=== PATIENT | male | born 1990 | race Caucasian/White ===

== ENCOUNTER 2017-03-04 00:41 | Emergency (ER) | payer MEDICAID, OTHER ==
[2017-03-04 00:56] VITALS: BP 166/115
--- NOTE | 2017-03-04 01:08 | ED Physician Documentation ---
PD HPI UPPER EXT INJURY - Stated complaint Stated Complaint: RT HAND LACERATION - Chief complaint Chief Complaint: Laceration - History obtained from History obtained from: Patient - History of Present Illness Location: Right, Hand Type of injury: Blunt / blow Where injury occurred: Home Timing - details: Abrupt onset Associated symptoms: No: Weakness, Numbness - Additonal information Additional information: patient punched glass object which shattered, causing multiple abrasions and lacerations to his right hand. patient is right-hand dominant. Review of Systems Skin: reports: Abrasion (s), Laceration (s) Neurologic: denies: Focal weakness, Numbness PD PAST MEDICAL HISTORY - Past Medical History Cardiovascular: Hypertension Respiratory: None Neuro: None Endocrine/Autoimmune: None GI: None : None Psych: Anxiety Musculoskeletal: None Derm: None - Past Surgical History Past Surgical History: Yes HEENT: Other - Present Medications Home Medications: Ambulatory Orders Medication Instructions Recorded Confirmed Cyclobenzaprine [Flexeril] 10 mg PO Q8H PRN #20 tablet 04/13/14 Ibuprofen [Motrin] 400 mg PO Q6H PRN #30 tablet 04/13/14 Oxycodone HCl/Acetaminophen 1 - 2 each PO Q6H PRN #15 tablet 04/13/14 [Percocet 5-325 mg Tablet] - Allergies Allergies/Adverse Reactions: Allergies Allergy/AdvReac Type Severity Reaction Status Date / Time No Known Drug Allergies Allergy Verified 03/04/17 00:56 - Social History Does the pt smoke?: No Smoking Status: Never smoker Does the pt drink ETOH?: No Does the pt have substance abuse?: No - Immunizations Immunizations are current?: Yes - POLST Patient has POLST: No PD ED PE NORMAL - Vitals Vital signs reviewed: Yes - General General: Alert and oriented X 3, No acute distress, Well developed/nourished - Extremities Extremities: No tenderness to palpate, Normal ROM s pain - Neuro Neuro: No motor deficit, No sensory deficit, Other (FROM right fingers, including flexion and extension and isolation of PIP and DIP joints. LTS intact) PD ED PE EXPANDED - Extremities Extremities: Other (right-hand corner there are multiple superficial lacerations and abrasions to the extensor surfaces of the third fourth and fifth digits.there is a deep, stellate, beveled laceration in the third webspace.there are linear superficial lacerations in the fourth webspace) Results - Vitals Vitals: Vital Signs - 24 hr 03/04/17 00:52 Temperature 37.2 C Heart Rate 51 L Respiratory 20 Rate Blood Pressure 166/115 H O2 Saturation 96 Oxygen O2 Source Room air Procedures - Laceration (location) Hand right Length in cm: 1.5 Wound type: Irregular, Into subcut fat, Clean Neurovascular status: Sensory intact, Motor intact, Vascular intact Tendon involvement: Tendon intact Anesthesia: Lidocaine 1% Wound Preparation: Chlorhexadine Skin layer closure: Nylon, Interrupted, Running, Other (a single horizontal mattress suture was used to pull the proximal-most portion of the lacsration together, but due to tissue loss, the wound edges could not be completely and perfectly opposed) Other: Patient tolerated well, No complications, Neurovascular intact, Dressing applied Complexity: Simple PD MEDICAL DECISION MAKING - ED course Complexity details: considered differential, d/w patient ED course: no FB on careful inspection of all wounds except for a single, punctate FB removed from fourth webspace. I d/w patient that part of the sutured wound had tissue missing and thus the wound edges could not be completely approximated. Imexplained that this part of the wound would thus take longer to heal than the rest of the wound. Departure - Departure Disposition: 01 Home, Self Care Clinical Impression: Laceration Condition: Good Instructions: ED Laceration Ext Sutr Stap Tape Follow-Up: [facility] [Provider Group] [facility] [Provider Group] Comments: Follow up in 7-10 days for removal of the stitches Discharge Date/Time: 03/04/17 02:09
[2017-03-04] MEDS ORDERED: LIDOCAINE 1% 50 ML MDV SUBQ STA (01:16)
[2017-03-04] MEDS ORDERED: LIDOCAINE 1% 2 ML VIAL ONE (01:21)
[2017-03-04] MEDS ORDERED: BACITRACIN OINT TOP STA (02:02)
== END 2017-03-04 02:09 | disposition home or self-care (01) ==
LOC: ED 00:41
DX: S61.421A Laceration with foreign body of right hand, initial encounter (principal); S61.411A Laceration without foreign body of right hand, initial encounter; S60.511A Abrasion of right hand, initial encounter; S60.412A Abrasion of right middle finger, initial encounter; S60.414A Abrasion of right ring finger, initial encounter; S60.416A Abrasion of right little finger, initial encounter; W25.XXXA Contact with sharp glass, initial encounter; W45.8XXA Other foreign body or object entering through skin, initial encounter; W22.8XXA Striking against or struck by other objects, initial encounter; Y93.89 Activity, other specified; Y92.009 Unspecified place in unspecified non-institutional (private) residence as the place of occurrence of the external cause; I10 Essential (primary) hypertension
CPT/HCPCS: 12001; 99282; 99283

== ENCOUNTER 2017-03-26 14:38 | Emergency (ER) | payer MEDICAID ==
[2017-03-26] MEDS ORDERED: COLCHICINE 0.6 MG TABLET PO STA (15:01)
[2017-03-26] MEDS ORDERED: DEXAMETHASONE 10 MG/ML VIAL PO STA (15:01)
[2017-03-26] MEDS ORDERED: DEXAMETHASONE 10 MG/ML VIAL ONE (15:06)
[2017-03-26] MEDS ORDERED: CHERRY SYRUP 10 ML UDC PO ONE (15:06)
== END 2017-03-26 15:18 | disposition home or self-care (01) ==
DX: M10.9 Gout, unspecified (principal); I10 Essential (primary) hypertension
CPT/HCPCS: 99283; A9270

== ENCOUNTER 2017-05-23 21:21 | Emergency (ER) | payer MEDICAID ==
--- NOTE | 2017-05-23 22:32 | ED Physician Documentation ---
PD HPI SKIN - Stated complaint Stated Complaint: LT ANKLE PX - Chief complaint Chief Complaint: Ext Problem - History obtained from History obtained from: Patient - History of Present Illness Timing - onset: Today Timing - duration: Hours Timing - details: Abrupt onset Location: LLE (dorsolateral foot) Quality / character: Painful, Discolored (red), Swelling Associated symptoms: No: Fever, Myalgias Similar symptoms before: Diagnosis (likely gout) Review of Systems Constitutional: denies: Fever, Chills Skin: denies: Abrasion (s), Laceration (s) Neurologic: denies: Focal weakness, Numbness PD PAST MEDICAL HISTORY - Past Medical History Cardiovascular: Hypertension Respiratory: None Neuro: None Endocrine/Autoimmune: None GI: None : None Psych: Anxiety Musculoskeletal: Gout Derm: None - Past Surgical History Past Surgical History: Yes HEENT: Other - Present Medications Home Medications: Ambulatory Orders Medication Instructions Recorded Confirmed Colchicine 0.6 mg PO BID #10 tablet 05/23/17 Dexamethasone [Decadron] 4 mg PO DAILY #5 tablet 05/23/17 HYDROcod/ACETAM 5/325 [[place] 5/325] 1 tab PO Q6H PRN #20 tablet 05/23/17 - Allergies Allergies/Adverse Reactions: Allergies Allergy/AdvReac Type Severity Reaction Status Date / Time No Known Drug Allergies Allergy Verified 05/23/17 21:26 - Social History Does the pt smoke?: No Smoking Status: Never smoker Does the pt drink ETOH?: No Does the pt have substance abuse?: No - Immunizations Immunizations are current?: Yes - POLST Patient has POLST: No PD ED PE NORMAL - Vitals Vital signs reviewed: Yes - General General: Alert and oriented X 3, Well developed/nourished - Derm Derm: Warm and dry, Other (redness with warmth and very tender dorsolateral foot proximally. similar to prior epiosde and c/w gout. No skin sores. ) Results - Vitals Vitals: Vital Signs - 24 hr 05/23/17 05/23/17 21:26 23:10 Temperature 36.4 C L 37.0 C Heart Rate 84 61 Respiratory 18 97 H Rate Blood Pressure 158/102 H 141/84 H O2 Saturation 97 15 L Oxygen O2 Source Room air PD MEDICAL DECISION MAKING - ED course Complexity details: considered differential (c/w recurrent gout. Has stopped alcohol regular use, non for few weeks. Regular diet. 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 ), d/w patient Departure - Departure Disposition: 01 Home, Self Care Clinical Impression: Foot pain, left Gout attack Qualifiers: Gout site: foot Gout etiology: idiopathic Laterality: left Qualified Code(s): M10.072 - Idiopathic gout, left ankle and foot Condition: Stable Record reviewed to determine appropriate education?: Yes Instructions: ED Arthritis Gout Follow-Up: Riley Scott MD [Primary Care Provider] - Prescriptions: Colchicine 0.6 mg PO BID #10 tablet Dexamethasone [Decadron] 4 mg PO DAILY #5 tablet HYDROcod/ACETAM 5/325 [[place] 5/325] 1 tab PO Q6H PRN #20 tablet PRN Reason: Pain Comments: Keep well-hydrated. Ibuprofen or naproxen twice daily for pain. Add Tylenol or hydrocodone if needed every 6 hours. Colchicine twice daily for the next 3- 5 days. Dexamethasone steroid daily for the next 5 days. Recheck if not improving over the next few days. Discharge Date/Time: 05/23/17 23:26
[2017-05-23] MEDS ORDERED: IBUPROFEN 600 MG TABLET PO STA (22:48)
[2017-05-23] MEDS ORDERED: DEXAMETHASONE 10 MG/ML VIAL PO STA (22:48)
[2017-05-23] MEDS ORDERED: HYDROcod/ACETAM 5/325 MG TABLET PO STA (22:50)
[2017-05-23] MEDS ORDERED: HYDROcod/ACET 5/325 Prepack 6 PO ONE ×2 (22:54→23:17)
[2017-05-23 23:11] VITALS: BP 141/84
[2017-05-23] MEDS ORDERED: HYDROcod/ACETAM 5/325 MG TABLET ONE (23:16)
[2017-05-23] MEDS ORDERED: IBUPROFEN 600 MG TABLET PO ONE (23:17)
[2017-05-23] MEDS ORDERED: DEXAMETHASONE 10 MG/ML VIAL ONE (23:17)
== END 2017-05-23 23:26 | disposition home or self-care (01) ==
LOC: ED 21:21
DX: M10.072 Idiopathic gout, left ankle and foot (principal); M25.572 Pain in left ankle and joints of left foot
CPT/HCPCS: 99283; A9270

== ENCOUNTER 2017-12-03 10:41 | Outpatient (CLI) | payer MEDICAID ==
[2017-12-04 09:11] LABS: HEPATITIS C ANTIBODY NON-REACTIVE (NON-REACTIVE)
[2017-12-04 15:46] LABS: HIV AG/AB 4TH GEN NON-REACTIVE (NON-REACTIVE)
[2017-12-05 12:42] LABS: HSV 2 IGG TYPE SPECIFIC AB <0.90 index
== END 2017-12-03 10:42 | disposition home or self-care (01) ==
LOC: LAB.N 10:41
PROVIDERS: ATTEND Physician Assistant Medical
DX: Z91.89 Other specified personal risk factors, not elsewhere classified (principal)
CPT/HCPCS: 36415; 81599; 86695; 86696; 86803; 87389; 87491; 87591

== ENCOUNTER 2018-03-05 08:00 | Outpatient (CLI) | payer MEDICAID ==
[2018-03-05 19:51] LABS: BILIRUBIN,URINE NEGATIVE (NEGATIVE); GLUCOSE, URINE (UA) NEGATIVE (NEGATIVE); KETONES,URINE (UA) NEGATIVE (NEGATIVE); LEUKOCYTE ESTERASE, URINE NEGATIVE (NEGATIVE); NITRITE,URINE NEGATIVE (NEGATIVE); OCCULT BLOOD,URINE NEGATIVE (NEGATIVE); PH,URINE 6.5 PH (5.0-7.5); PROTEIN,URINE NEGATIVE (NEGATIVE); UROBILINOGEN,URINE 0.2 (NORMAL) E.U./dL (NORMAL)
[2018-03-05 20:12] LABS: BACTERIA,URINE None Seen /HPF (None Seen); CLARITY,URINE CLEAR (CLEAR); RBC,URINE None Seen /HPF (0-5); SQUAMOUS EPITHELIAL CELL,UR NONE SEEN (<= Few)
== END 2018-03-05 08:01 | disposition home or self-care (01) ==
LOC: LAB.R 08:00
PROVIDERS: ATTEND Physician Assistant Medical
DX: R31.9 Hematuria, unspecified (principal); R10.9 Unspecified abdominal pain
CPT/HCPCS: 81001; 87086

== ENCOUNTER 2018-03-20 19:04 | Emergency (ER) | payer MEDICAID ==
[2018-03-20 19:10] VITALS: BP 154/95
--- NOTE | 2018-03-20 19:36 | XRAY Report ---
Procedure Date: 03/20/2018 Accession Number: [id number] / [id number] Procedure: XR - Finger(s) RT CPT Code: FULL RESULT: EXAM: RIGHT FIRST DIGIT RADIOGRAPHY EXAM DATE: 03/20/2018 07:20 PM. CLINICAL HISTORY: Trauma. COMPARISON: None. TECHNIQUE: 3 views. FINDINGS: Bones: No fracture or focal bony lesion. Joints: No evidence of dislocation. Soft Tissues: No unexpected soft tissue findings. IMPRESSION: No evidence of fracture or dislocation. RADIA
[2018-03-20] MEDS ORDERED: TETANUS/DIPHTHERIA/PERTUSSIS 0.5 ML SYRINGE IM ONE (20:34)
[2018-03-20] MEDS ORDERED: cephALEXin 250 MG CAPSULE PO STA (20:34)
--- NOTE | 2018-03-20 20:36 | ED Physician Documentation ---
PD HPI UPPER EXT INJURY - Stated complaint Stated Complaint: R FINGER INJ - Chief complaint Chief Complaint: Wound - History of Present Illness Location: Right, Finger Type of injury: Laceration, Puncture wound Where injury occurred: Work Timing - onset: Today Timing - details: Abrupt onset Recently seen: Not recently seen - Additonal information Additional information: Patient is a 27 year old male with no significant past medical history who is presenting to the emergency department for a puncture wound in his right thumb. Patient shot a nail into his thumb earlier today at work. patient denies any other trauma but is unsure about his tetanus. Review of Systems Ten Systems: 10 systems reviewed and negative PD PAST MEDICAL HISTORY - Past Medical History Past Medical History: No Cardiovascular: Hypertension Respiratory: None Endocrine/Autoimmune: None GI: None : None Psych: Anxiety Musculoskeletal: Gout Derm: None - Past Surgical History Past Surgical History: Yes HEENT: Other - Present Medications Home Medications: Ambulatory Orders Medication Instructions Recorded Confirmed Colchicine 0.6 mg PO BID #10 tablet 05/23/17 Dexamethasone [Decadron] 4 mg PO DAILY #5 tablet 05/23/17 HYDROcod/ACETAM 5/325 [[place] 5/325] 1 tab PO Q6H PRN #20 tablet 05/23/17 Cephalexin [Keflex] 500 mg PO Q6H 7 Days capsule 03/20/18 - Allergies Allergies/Adverse Reactions: Allergies Allergy/AdvReac Type Severity Reaction Status Date / Time No Known Drug Allergies Allergy Verified 05/23/17 21:26 - Social History Does the pt smoke?: No Smoking Status: Never smoker Does the pt drink ETOH?: No Does the pt have substance abuse?: No - Immunizations Immunizations are current?: No - POLST Patient has POLST: No PD ED PE NORMAL - Vitals Vital signs reviewed: Yes - General General: Alert and oriented X 3, No acute distress - HEENT HEENT: Pharynx benign - Cardiac Cardiac: RRR - Respiratory Respiratory: No respiratory distress - Neuro Neuro: Alert and oriented X 3, No motor deficit, No sensory deficit, Normal speech Eye Opening: Spontaneous PD ED PE EXPANDED - Cardiac Cardiac: Cap refill < 2 sec - Extremities Extremities: Right finger(s) (puncture wound of first digit. No active bleeding ) Results - Vitals Vitals: Vital Signs - 24 hr 03/20/18 19:06 Temperature 36.9 C Heart Rate 75 Respiratory 16 Rate Blood Pressure 154/95 H O2 Saturation 98 Oxygen O2 Source Room air - Rads (name of study) right hand Radiology: Final report received (no acute fracture or dislocation) PD MEDICAL DECISION MAKING - ED course Complexity details: reviewed old records, reviewed results, re-evaluated patient , considered differential, d/w patient ED course: Patient was seen and examined at bedside. patient was sent for imaging. When patient returned the results were reviewed. there was no acute fracture or dislocation. patient was treated with tdap and keflex. patient required no further work up and was stable for discharge with outpatient follow up. - Sepsis Event Vital Signs: Vital Signs - 24 hr 03/20/18 19:06 Temperature 36.9 C Heart Rate 75 Respiratory 16 Rate Blood Pressure 154/95 H O2 Saturation 98 Oxygen O2 Source Room air Departure - Departure Disposition: 01 Home, Self Care Clinical Impression: Puncture wound Condition: Good Instructions: ED Wound Puncture General Follow-Up: Antwan Castro PA-C [Primary Care Provider] - Within 1 week Prescriptions: Cephalexin [Keflex] 500 mg PO Q6H 7 Days capsule Comments: there is no acute fracture or dislocation today. You were treated with tetanus and started on antibiotics. you should keep the area clean and dry and monitor for signs of infection. you should follow up with your doctor if you see any signs of infection. you can ice the wound and take motrin or tylenol as needed for pain.
== END 2018-03-20 20:42 | disposition home or self-care (01) ==
LOC: ED 19:04
DX: S61.032A Puncture wound without foreign body of left thumb without damage to nail, initial encounter (principal); W45.0XXA Nail entering through skin, initial encounter; Y99.0 Civilian activity done for income or pay; I10 Essential (primary) hypertension; Z23 Encounter for immunization
CPT/HCPCS: 73140; 90471; 90715; 99283; A9270; 96372

== ENCOUNTER 2022-08-07 12:30 | Emergency (ER) | payer BC, MEDICAID ==
[2022-08-07 12:56] VITALS: BP 175/115
--- NOTE | 2022-08-07 13:36 | XRAY Report ---
PROCEDURE: Hand 3 View RT INDICATIONS: Trauma TECHNIQUE: 3 views of the hand(s) acquired. COMPARISON: None FINDINGS: Bones: Comminuted fracture of the base of the first metacarpal. Fracture lucencies extending to the f irst CMC joint. Deformity of the fifth metacarpal compatible with chronic healed fracture. Soft tissues: No suspicious soft tissue calcifications. IMPRESSION: Comminuted, intra-articular, fracture involving the base of the first metacarpal. Reviewed by: Marita Moreno MD, PhD on 08/07/2022 1:34 PM PST Approved by: Marita Moreno MD, PhD on 08/07/2022 1:34 PM PST Station ID: [id number]
--- NOTE | 2022-08-07 14:55 | ED Physician Documentation ---
PD HPI UPPER EXT INJURY - Stated complaint Stated Complaint: RT HAND SWOLLEN - Chief complaint Chief Complaint: Ext Problem - History obtained from History obtained from: Patient - History of Present Illness Location: Right, Hand (base of thumb/radial hand.) Type of injury: Blunt / blow (he was rearranging boxes in storage shelves and some cast iron cookware fell onto right hand. pain base of thumb area. the farr then fell further to the floor and struck front of aggarwal onto top of foot. Pt able to walk okay. 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 No: Weakness, Numbness Similar symptoms before: Has not had sx before Recently seen: Not recently seen Review of Systems Skin: denies: Abrasion (s), Laceration (s) Neurologic: denies: Focal weakness, Numbness PD PAST MEDICAL HISTORY - Past Medical History Cardiovascular: Hypertension Respiratory: None Endocrine/Autoimmune: None GI: None : None Psych: Anxiety Musculoskeletal: Gout Derm: None - Past Surgical History Past Surgical History: Yes HEENT: Other - Present Medications Home Medications: Ambulatory Orders Medication Instructions Recorded Confirmed Colchicine 0.6 mg PO TID PRN #15 tablet 08/07/22 HYDROcod/ACETAM 5/325 [[place] 5/325] 1 ea PO Q6H PRN #18 tablet 08/07/22 - Allergies Allergies/Adverse Reactions: Allergies Allergy/AdvReac Type Severity Reaction Status Date / Time Penicillins Allergy Unknown Verified 08/07/22 12:54 - Social History Does the pt smoke?: No Smoking Status: Never smoker Does the pt drink ETOH?: No Does the pt have substance abuse?: No - Immunizations Immunizations are current?: No - POLST Patient has POLST: No PD ED PE NORMAL - Vitals Vital signs reviewed: Yes - General General: Alert and oriented X 3, Well developed/nourished, Other (guarding motion of right thumb. able to walk/ambulate without limping. ) - Derm Derm: Normal color, Warm and dry - Extremities Extremities: Other (right base first MC with tenderness and swelling. No ecchymosis. Normal color and cap refill in thumb. Normal sensation to touch. pain with slight movement. Foot and ankle right with normal rom without pain. ) - Neuro Neuro: Alert and oriented X 3, No motor deficit, No sensory deficit, Normal speech Results - Vitals Vitals: Vital Signs - 24 hr 08/07/22 12:52 Temperature 37.2 C Heart Rate 106 H Respiratory 16 Rate Blood Pressure 175/115 H O2 Saturation 98 Oxygen O2 Source Room air - Rads (name of study) right hand Radiology: Prelim report reviewed (base of first mC comminuted articular fracture with some displacement. ), See rad report Procedures - Splint (location) right hand thumb spica Splint applied by: Physician Type of splint: Short arm, Thumb spica (well padded) Other: Patient tolerated well, No complications, Neurovascular intact, Sling provided PD MEDICAL DECISION MAKING - ED course Complexity details: reviewed results, considered differential, d/w patient Departure - Departure Disposition: 01 Home, Self Care Clinical Impression: Hand injury Qualifiers: Encounter type: initial encounter Laterality: right Qualified Code(s): S69.91XA - Unspecified injury of right wrist, hand and finger(s), initial encounter First metacarpal bone fracture Qualifiers: Encounter type: initial encounter Fracture type: closed Metacarpal location: base Fracture morphology: unspecified fracture morphology Fracture alignment: displaced Laterality: right Qualified Code(s): S62.231A - Other displaced fracture of base of first metacarpal bone, right hand, initial encounter for closed fracture Foot contusion Qualifiers: Encounter type: initial encounter Laterality: right Qualified Code(s): S90.31XA - Contusion of right foot, initial encounter Condition: Stable Record reviewed to determine appropriate education?: Yes Instructions: ED Fx Hand Closed Follow-Up: Rupesh Copeland MD [Provider Admit Priv/Credential] - Prescriptions: Colchicine 0.6 mg PO TID PRN #15 tablet PRN Reason: Pain HYDROcod/ACETAM 5/325 [[place] 5/325] 1 ea PO Q6H PRN #18 tablet PRN Reason: Pain Comments: Keep the splint clean and dry. Use the sling to help elevate. Ice and elevate the hand often to reduce swelling. Call the orthopedic office today or tomorrow for an appointment later this week or early next week. The orthopedist will evaluate it at that point and decide with you whether it needs a surgical repair or just casting. You will likely be out of commission about 6 weeks or so because of this fracture. Tylenol ibuprofen as needed for pains. Add hydrocodone every 4-6 hours if needed for worse pain. I did write a prescription for some colchicine should the injury of your foot precipitate a gout flareup. I transmitted prescriptions to [facility] pharmacy. I am prescribing a short course of narcotic pain medication for you. These are potentially dangerous and addictive medications that should be used carefully. These medications may constipate you. Take an [id number] stool softener such as docusate twice daily with plenty of water while taking these medications. If you go 24 hours without a bowel movement, take [id number] MiraLAX, per package instructions. Do not drink or drive while taking these medications. If you received narcotic or sedating medications while in the emergency department do not drive for 24 hours. Store this medication in a safe, secure place and out of reach of children. It is a violation of federal law to give or sell this medication to another person or to use in a manner other than prescribed. The ED will not refill narcotic prescriptions, including prescriptions lost or stolen. You can dispose of unwanted medications at the [facility]'s office or at several pharmacies such as [facility]. Discharge Date/Time: 08/07/22 16:00
[2022-08-07] MEDS ORDERED: ACETAMINOPHEN 325 MG TABLET PO STA (15:16)
[2022-08-07] MEDS ORDERED: IBUPROFEN 600 MG TABLET PO STA (15:16)
== END 2022-08-07 16:00 | disposition home or self-care (01) ==
LOC: ED 12:30
DX: S62.231A Other displaced fracture of base of first metacarpal bone, right hand, initial encounter for closed fracture (principal); S69.91XA Unspecified injury of right wrist, hand and finger(s), initial encounter; S90.31XA Contusion of right foot, initial encounter; W20.8XXA Other cause of strike by thrown, projected or falling object, initial encounter; Y93.89 Activity, other specified; Y92.009 Unspecified place in unspecified non-institutional (private) residence as the place of occurrence of the external cause; I10 Essential (primary) hypertension
CPT/HCPCS: 73130; 99283; A9270

== ENCOUNTER 2022-08-13 08:00 | Outpatient (CLI) | payer BC ==
--- NOTE | 2022-08-13 11:18 | XRAY Report ---
PROCEDURE: Hand 3 View RT INDICATIONS: RIGHT HAND PAIN TECHNIQUE: 3 views of the hand(s) acquired. COMPARISON: 08/07/2022 FINDINGS: Bones: Similar comminuted fracture of the base of the first metacarpal. Prior deformity of the fifth metacarpal. Possible prior deformity of the distal radius. Soft tissues: No suspicious calcifications. IMPRESSION: No significant change in comminuted fracture of the base of the first metacarpal. Reviewed by: Enio Duque MD on 08/13/2022 11:16 AM PST Approved by: Enio Duque MD on 08/13/2022 11:16 AM PST Station ID: [id number]
== END 2022-08-13 23:59 | disposition home or self-care (01) ==
LOC: DI.WOS 08:00
PROVIDERS: ATTEND Orthopaedic Surgery
DX: S62.231A Other displaced fracture of base of first metacarpal bone, right hand, initial encounter for closed fracture (principal)

== ENCOUNTER 2022-08-15 06:26 | Day surgery (SDC) | payer BC ==
[~2022-08-15 06:26] MED LIST: ACETAMINOPHEN 500 MG TABLET PO ONE; CEFAZOLIN 2G/50ML 0.9% NS 2 GM/50 ML BAG IV ONE; CELECOXIB 100 MG CAPSULE PO ONE
[2022-08-15] MEDS ORDERED: LACTATED RINGERS 1,000 ML IV ONE ×2 (06:31→08:35)
[2022-08-15] MEDS ORDERED: BUPIVACAINE 0.5% PF 30 ML VIAL ONE (07:04)
[2022-08-15] MEDS ORDERED: LIDOCAINE MPF 2%-EPI 1:200000 20 ML VIAL ONE (07:04)
--- NOTE | 2022-08-15 07:09 | ANESTHESIA ---
Pre-Anesthesia VS, & Labs - Diagnosis right thumb fracture - Procedure closed reduction and pinning of right thumb fracture Vital Signs: Temp Pulse Resp BP Pulse Ox O2 Flow Rate 36.5 C 64 14 151/93 H 97 08/15/22 06:39 08/15/22 06:39 08/15/22 06:39 08/15/22 06:39 08/15/22 06:39 Height: 5 ft 11 in Weight (kg): 97.5 kg Body Mass Index: 29.9 BMI Classification: Overweight - NPO >8 hours Home Medications and Allergies Home Medications: Ambulatory Orders Naproxen Sodium [Aleve] 220 mg PO DAILY PRN 08/14/22 Colchicine 0.6 mg PO PRN PRN 08/15/22 Naproxen Sodium [Aleve] 220 mg PO DAILY PRN 08/14/22 Colchicine 0.6 mg PO PRN PRN 08/15/22 Allergies/Adverse Reactions: Allergies Allergy/AdvReac Type Severity Reaction Status Date / Time Penicillins Allergy Unknown Verified 08/07/22 12:54 Anes History & Medical History - Anesthetic History Anesthesia Complications: reports: No previous complications - Medical History Cardiovascular: reports: Hypertension Pulmonary: reports: Other (snores and has witnessed apnea at night) Gastrointestinal: reports: None Urinary: reports: None Neuro: reports: None Musculoskeletal: reports: Gout Endocrine/Autoimmune: reports: None Blood Disorders: reports: None Skin: reports: None Smoking Status: Former smoker (quit years ago) Psychosocial: reports: No issues indicated History of Cancer?: No - Surgical History Eyes Ears Nose Throat (EENT): reports: Other (septoplasty and turbinate reduction) Exam General: Alert, Oriented x3, Cooperative, No acute distress Dental: WNL Mouth Openin Fingerbreadth Neck Mobility: Normal Mallampati classification: II Thyromental Distance: 4-6 cm Mental/Cognitive Status: Alert/Oriented X3, Normal for patient Plan Anesthesia Type: General Consent for Procedure(s) Verified and Reviewed: Yes Code Status: Attempt Resuscitation ASA classification: 2-Mild systemic disease Is this case an emergency?: No
[2022-08-15] MEDS ORDERED: ACETAMINOPHEN 500 MG TABLET PO PRN (07:11)
[2022-08-15] MEDS ORDERED: oxyCODONE 5 MG TABLET PO PRN (07:11)
[2022-08-15] MEDS ORDERED: CELECOXIB 100 MG CAPSULE PO PRN (07:11)
[2022-08-15] MEDS ORDERED: ONDANSETRON 4 MG/2 ML VIAL IVP PRN ×2 (07:11→07:14)
[2022-08-15] MEDS ORDERED: ATROPINE ABBOJECT 1 MG/10 ML SYRINGE IVP PRN (07:14)
[2022-08-15] MEDS ORDERED: fentaNYL 100 MCG/2 ML VIAL IVP PRN (07:14)
[2022-08-15] MEDS ORDERED: NALOXONE 0.4 MG/ML VIAL IVP PRN (07:14)
[2022-08-15] MEDS ORDERED: MORPHINE 2 MG/ML CARPUJECT IVP PRN (07:14)
[2022-08-15] MEDS ORDERED: HYDROmorphone 0.5 MG/0.5 ML SYRINGE IVP PRN (07:14)
[2022-08-15] MEDS ORDERED: PROPOFOL 200 MG/20 ML VIAL IVP ONE (07:16)
[2022-08-15] MEDS ORDERED: MIDAZOLAM 2 MG/2 ML VIAL ONE (07:16)
[2022-08-15] MEDS ORDERED: SEVOFLURANE 250 ML LIQUID INH ONE (07:19)
[2022-08-15] MEDS ORDERED: KETOROLAC 30 MG/ML VIAL ONE (07:52)
[2022-08-15] MEDS ORDERED: DEXAMETHASONE 4 MG/ML VIAL ONE (07:52)
[2022-08-15] MEDS ORDERED: LACTATED RINGERS 1,000 ML IV SCH (08:00)
[2022-08-15] MEDS ORDERED: BUPIVACAINE 0.5% PF 30 ML VIAL INFIL ONE ×2 (08:11)
--- NOTE | 2022-08-15 08:59 | OPERATIVE REPORT ---
Operative Report - General Procedure Date: 08/15/22 Planned Procedure: Closed reduction, percutaneous pinning right thumb metacarpal base, possible open reduction internal fixation thumb metacarpal Pre-Op Diagnosis: Comminuted right thumb metacarpal base fracture, intra- articular, Displaced Procedure Performed: Close reduction right thumb metacarpal base intra-articular fracture, percutaneous K wire fixation with multiple pins Post Op Diagnosis: Same as preoperative diagnosis - Procedure Note Primary Surgeon: Rupesh Copeland MD Secondary Surgeon: Emma LOWRY Anesthesia Provider: Keyanna Rock CRNA Anesthesia Technique: General mask Estimated Blood Loss (mL): 2 Indications: 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 He sustained an isolated injury to his right thumb with localized pain at the base of the right thumb. His tendon function was intact, neurovascular intact but did have localized tenderness and swelling to the thumb metacarpal base of the right thumb. His x-rays showed a comminuted metacarpal base fracture with displacement involving the joint, intra-articular fracture with 3 major pieces. The pros and cons of treatment were discussed with him including surgical treatment of pins and possibility a plate with screws. An informed consent was obtained at her office prior to surgery with him being in agreement to the procedure. Findings: The fracture was comminuted but consisted of 3 major pieces. This was a T shaped fracture. The fracture did enter the joint. Complications: None - Other Other Information/Narrative: The patient was brought to the operating room and placed in the supine position with the right arm in an arm extension table. After satisfactory anesthesia had been obtained, the right upper extremity was prepped and draped in a sterile manner in the usual fashion. A pneumatic tourniquet had been applied to the proximal right arm over cast padding. The C arm image intensifier was covered with sterile drape. A timeout procedure was performed by the entire operating room team. Thumb fingertrap traction was applied to obtain traction view and the fracture seem to align relatively well. For this reason, percutaneous K wire fixation was next initiated. A 0.045 K wire was inserted across the articular base of the right thumb metacarpal percutaneously under C arm image intensifier guidance. Traction was maintained with the fingertrap traction with radial abduction. A second 0.062 K wire was inserted from the metacarpal shaft across the articular fracture into the trapezium. A third K wire was inserted percutaneously to provide additional fixation to the articular surface. Multiple images were obtained including a Benavidez view with the forearm hyperpronated. There appeared to be satisfactory alignment of the pin and fracture. Gauze was placed around the pins with a sterile ball over the K wires. A well- padded short arm thumb spica fiberglass splint was applied. He received 2 g of Ancef intravenously and tolerated procedure well. A physician virtual customer assistant was medically necessary to help with prepping and draping, positioning, protection of vital structures, assistance during the procedure including wound closure, dressing and/or splinting.
[2022-08-15 09:41] VITALS: BP 140/104
--- NOTE | 2022-08-15 10:14 | ANESTHESIA POST OP EVALUATION ---
Anesthesia Post Eval - Post Anesthesia Eval Vitals: Last Vital Signs Temp 36.8 C 08/15/22 09:39 Pulse 74 08/15/22 09:39 Resp 13 08/15/22 09:39 BP 140/104 H 08/15/22 09:39 Pulse Ox 99 08/15/22 09:39 O2 Flow Rate CV Function Including HR & BP: Stable Pain Control: Satisfactory Nausea & Vomiting: Negative Mental Status: Baseline Respiratory Status: Airway Patent Hydration Status: Satisfactory Anesthesia Complications: None
--- NOTE | 2022-08-15 14:37 | XRAY Report ---
PROCEDURE: OR C-Arm Procedure INDICATIONS: Closed reduction, percutaneous pinning, R thumb FLUORO TIME: 0: 29 MIN TECHNIQUE: 3 intraoperative views of the base of the first digit of the right thumb. COMPARISON: Right hand radiographs 08/13/2022. FINDINGS: K wire fixation x3 at the first metacarpal base. IMPRESSION: Intraoperative guidance provided. Reviewed by: Roberto Kaur MD on 08/15/2022 2:36 PM PST Approved by: Roberto Kaur MD on 08/15/2022 2:36 PM PST Station ID: [id number]
== END 2022-08-15 06:27 | disposition home or self-care (01) ==
LOC: SDS 06:26
PROVIDERS: ATTEND Orthopaedic Surgery
DX: S62.221A Displaced Rolando's fracture, right hand, initial encounter for closed fracture (principal); W20.8XXA Other cause of strike by thrown, projected or falling object, initial encounter; I10 Essential (primary) hypertension; Z87.891 Personal history of nicotine dependence
CPT/HCPCS: 26608; A9270; C1713; J0690; J3490; J7120

== ENCOUNTER 2022-09-10 16:40 | Outpatient (CLI) | payer BC ==
--- NOTE | 2022-09-10 15:18 | XRAY Report ---
PROCEDURE: Finger(s) RT INDICATIONS: RIGHT THUMB FRACTURE TECHNIQUE: PA hand, 2 views of the thumb acquired. COMPARISON: Right hand radiographs and 2121 FINDINGS: Bones: Physical changes are seen from prior dating is been fixation of the previously seen comminuted first metacarpal base fracture. Osseous alignment does not appear significantly changed. Volar bowin g of the fifth metacarpal is most likely related to a remote prior fracture. Soft tissues: No suspicious soft tissue calcifications. IMPRESSION: Status post pin fixation of first metacarpal base fracture with expected postoperative findings. Reviewed by: Skip Michel MD on 09/10/2022 3:17 PM PST Approved by: Skip Michel MD on 09/10/2022 3:17 PM PST Station ID: [id number]
== END 2022-09-10 16:45 | disposition home or self-care (01) ==
LOC: DI.WOS 16:40
PROVIDERS: ATTEND Physician Assistant Surgical
DX: S62.221D Displaced Rolando's fracture, right hand, subsequent encounter for fracture with routine healing (principal)

== ENCOUNTER 2022-09-25 08:00 | Outpatient (CLI) | payer BC ==
--- NOTE | 2022-09-25 16:48 | XRAY Report ---
PROCEDURE: Finger(s) RT INDICATIONS: RIGHT THUMB FRACTURE TECHNIQUE: AP hand, 3 views of the right thumb finger(s) acquired. COMPARISON: 09/10/2022 FINDINGS: Bones: Interval removal of percutaneous fixation pins base of the right first metacarpal. Stable shanice earance and alignment of moderately comminuted base of first metacarpal fracture. Fracture lines lee in conspicuous. Minimal periosteal reaction noted. No new acute fractures. Postsurgical alignment shanice ears stable. No suspicious bony lesions. Soft tissues: No suspicious soft tissue calcifications. Overlying soft tissue swelling of the right thumb IMPRESSION: Stable appearance and alignment of comminuted fracture involving the first metacarpal base status pos t interval removal of percutaneous fixation pins. Minimal periosteal reaction suggestive of progress towards fracture healing. Reviewed by: Sanchez Saldana MD on 09/25/2022 4:47 PM PST Approved by: Sanchez Saldana MD on 09/25/2022 4:47 PM PST Station ID: [id number]
== END 2022-09-25 23:59 | disposition home or self-care (01) ==
LOC: DI.WOS 08:00
PROVIDERS: ATTEND Physician Assistant Surgical
DX: S62.22 Rolando's fracture (principal)

== ENCOUNTER 2023-05-16 11:57 | Emergency (ER) | payer BC, OTHER ==
[2023-05-16 12:19] VITALS: O2SAT 98
[2023-05-16] MEDS ORDERED: HYDROcod/ACETAM 5/325 MG TABLET PO STA (12:34)
--- NOTE | 2023-05-16 12:39 | ED Physician Documentation ---
History of Present Illness - Stated complaint Stated Complaint: ANKLE PX,SWELLING,REDNESS - Chief complaint Chief Complaint: Ext Problem - History obtained from History obtained from: Patient - History of Present Illness Timing: Today Pain level max: 7 Pain level now: 7 - Additonal information Additional information: Patient is a 32-year-old male who presents to the emergency department with right ankle pain and swelling that started today. Similar to prior episodes of gout. He states that normally improves with prednisone and colchicine. He is on allopurinol at home. No fevers. No chills. No trauma. Worse with walking, better with rest. Review of Systems Constitutional: denies: Fever, Chills GI: denies: Vomiting, Diarrhea Skin: denies: Rash Musculoskeletal: denies: Neck pain, Back pain Neurologic: denies: Headache PD PAST MEDICAL HISTORY - Past Medical History Past Medical History: Yes Cardiovascular: Hypertension Respiratory: Other Neuro: None Endocrine/Autoimmune: None GI: None : None HEENT: None, Other Psych: None Musculoskeletal: Gout Derm: None - Past Surgical History Past Surgical History: Yes HEENT: Other - Present Medications Home Medications: Ambulatory Orders Medication Instructions Recorded Confirmed Colchicine [Colcrys] 0.6 mg PO DAILY #10 tablet 05/16/23 allopurinoL [Zyloprim] 100 mg PO DAILY 05/16/23 05/16/23 predniSONE [Deltasone] 10 mg PO [id number] #42 tab 05/16/23 - Allergies Allergies/Adverse Reactions: Allergies Allergy/AdvReac Type Severity Reaction Status Date / Time Penicillins Allergy Unknown Verified 05/16/23 12:16 - Social History Does the pt smoke?: No Smoking Status: Never smoker Does the pt drink ETOH?: No Does the pt have substance abuse?: No - Immunizations Immunizations are current?: No - POLST Patient has POLST: No PD ED PE NORMAL - Vitals Vital signs reviewed: Yes - General General: Alert and oriented X 3, No acute distress - HEENT HEENT: Moist mucous membranes - Neck Neck: Supple, no meningeal sign - Derm Derm: Warm and dry - Extremities Extremities: Other (R ankle - ) - Neuro Neuro: Alert and oriented X 3 - Psych Psych: Normal mood, Normal affect Results - Vitals Vitals: Vital Signs - 24 hr 05/16/23 05/16/23 12:13 12:48 Temperature 37.1 C 37 C Heart Rate 78 72 Respiratory 14 15 Rate Blood Pressure 144/108 H 135/99 H O2 Saturation 98 98 Oxygen O2 Source Room air PD Medical Decision Making - ED course Complexity details: considered differential, d/w patient ED course: Patient is a 32-year-old male who presents to the emergency department with what appears to be gout of the right ankle. Will place on prednisone for home and add colchicine. He has pain medication and anti-inflammatories at home. We will have him follow-up with his PCP for further care. No indication of septic joint. No evidence of fracture or dislocation to necessitate x-ray. No trauma. Patient counseled regarding signs and symptoms for which I believe and urgent re-evaluation would be necessary. Patient with good understanding of and agreement to plan and is comfortable going home at this time This document was made in part using voice recognition software. While efforts are made to proofread this document, sound alike and grammatical errors may occur. Departure - Departure Disposition: Home, Self Care Clinical Impression: Gout attack Qualifiers: Gout site: ankle Gout etiology: unspecified cause Laterality: right Qualified Code(s): M10.9 - Gout, unspecified Condition: Good Instructions: ED Arthritis Gout, ED Diet Gout Follow-Up: your,doctor in 1 week [Other] Prescriptions: Colchicine [Colcrys] 0.6 mg PO DAILY #10 tablet predniSONE [Deltasone] 10 mg PO [id number] #42 tab Comments: Your prescription was sent to the [facility] pharmacy. Please foll ow-up with your doctor for further care. Please return if you worsen. Forms: PCP List Discharge Date/Time: 05/16/23 12:48
[2023-05-16 12:58] VITALS: BP 135/99
== END 2023-05-16 12:48 | disposition home or self-care (01) ==
LOC: ED 11:57
DX: M10.9 Gout, unspecified (principal); I10 Essential (primary) hypertension; Z79.899 Other long term (current) drug therapy
CPT/HCPCS: 99282; 99283; A9270

== ENCOUNTER 2023-09-04 11:08 | Outpatient (CLI) | payer OTHER | END 2023-09-04 23:59 | disposition critical access hospital (66) | LOC: EMS 11:08 | DX: M25.562 Pain in left knee (principal); Z74.09 Other reduced mobility | CPT/HCPCS: A0425; A0429 ==

== ENCOUNTER 2023-09-04 11:21 | Emergency (ER) | payer OTHER ==
[2023-09-04 11:34] VITALS: O2SAT 97
--- NOTE | 2023-09-04 12:08 | XRAY Report ---
PROCEDURE: Knee 3 View LT INDICATIONS: swelling/pain TECHNIQUE: 3 views of the knee(s) were acquired. COMPARISON: None. FINDINGS: Bones: No fractures or dislocations. No suspicious bony lesions. Soft tissues: No knee joint effusion. No suspicious soft tissue calcifications or masses. IMPRESSION: No acute fracture. No osseous lesion. If symptoms and/or clinical suspicion for pathology continue, f urther assessment with repeat plain films, or advanced imaging (e.g., CT, MRI, or bone scan) is recom mended for further assessment. Reviewed by: Marj Sousa MD on 09/04/2023 12:07 PM PST Approved by: Marj Sousa MD on 09/04/2023 12:07 PM PST Station ID: [id number]
[2023-09-04 12:13] VITALS: BP 121/93
--- NOTE | 2023-09-04 12:27 | ED Physician Documentation ---
PD HPI LOWER EXT INJURY - Stated complaint Stated Complaint: L KNEE PAIN - Chief complaint Chief Complaint: Ext Problem - History obtained from History obtained from: Patient - Additional information Additional information: Patient is a 33-year-old male presenting for evaluation of left knee pain that has been hurting for the past 2 days. Patient is unsure of any specific trauma or injury but felt like he was starting to bother him on Saturday. Yesterday he woke up and he had more pain. He has a history of gout but this feels different and he tried prednisone and colchicine without any improvement. Denies IV drug use. No fevers. No rash. Patient reports pain is worse with ambulation.Patient does do a lot of work on his feet and does report a lot of repetitive movements on his feet related to his work. Review of Systems Constitutional: denies: Fever Musculoskeletal: reports: Joint pain PD PAST MEDICAL HISTORY - Past Medical History Past Medical History: Yes Cardiovascular: Hypertension Respiratory: Other Neuro: None Endocrine/Autoimmune: None GI: None : None HEENT: None, Other Psych: None Musculoskeletal: Gout Derm: None - Past Surgical History Past Surgical History: Yes HEENT: Other - Present Medications Home Medications: Ambulatory Orders Medication Instructions Recorded Confirmed Colchicine [Colcrys] 0.6 mg PO DAILY #10 tablet 05/16/23 allopurinoL [Zyloprim] 100 mg PO DAILY 05/16/23 05/16/23 Cyclobenzaprine [Flexeril] 10 mg PO TID PRN #12 tablet 09/04/23 HYDROcod/ACETAM 5/325 [[place] 5/325] 1 tablet PO Q6H PRN #10 tablet 09/04/23 - Allergies Allergies/Adverse Reactions: Allergies Allergy/AdvReac Type Severity Reaction Status Date / Time Penicillins Allergy Unknown Verified 09/04/23 11:31 - Social History Does the pt smoke?: No Smoking Status: Never smoker Does the pt drink ETOH?: No Does the pt have substance abuse?: Yes Substance Use and Type: Marijuana, CBD oil / Products - Immunizations Immunizations are current?: Yes - POLST Patient has POLST: No PD ED PE NORMAL - General General: Alert and oriented X 3, No acute distress, Well developed/nourished - HEENT HEENT: Atraumatic - Neck Neck: Supple, no meningeal sign - Cardiac Cardiac: Strong equal pulses - Derm Derm: Warm and dry, No rash - Extremities Extremities: Other (Mild swelling to left knee with no erythema, warmth. Pain with extension but is able to extend and flex at the knee. No calf tenderness) - Neuro Neuro: Normal speech Results - Vitals Vitals: Vital Signs - 24 hr 09/04/23 09/04/23 09/04/23 11:27 12:03 12:52 Temperature 36.6 C Heart Rate 76 73 Respiratory 16 17 17 Rate Blood Pressure 132/104 H 121/93 H O2 Saturation 97 97 Oxygen O2 Source Room air PD Medical Decision Making - ED course ED course: Patient with left knee pain for 2 days. Neurovascularly intact. No findings to suggest a septic joint. An x-ray was obtained which I reviewed I see no fracture or dislocation. Patient was given a knee immobilizer and crutches and instructed on continued supportive care as well as concerning symptoms to return for. He is also advised on need for close follow-up if his symptoms or not improving. Departure - Departure Disposition: 01 Home, Self Care Clinical Impression: Knee pain, left Condition: Stable Instructions: ED Knee Pain UKO Prescriptions: Cyclobenzaprine [Flexeril] 10 mg PO TID PRN #12 tablet PRN Reason: Spasms HYDROcod/ACETAM 5/325 [[place] 5/325] 1 tablet PO Q6H PRN #10 tablet PRN Reason: Pain Comments: Your x-ray does not show a broken bone or dislocation but you do have some obvious swelling to the knee. At this time I do not see signs of an infection. You could have an injury related to a strain. I have sent a prescription for a small amount of narcotic pain medication to the pharmacy. You have also described having muscle spasms at times at night so there is also a prescription for a muscle relaxer. I would not use both of these medications at the same time as they are sedating. Continue with a knee immobilizer and crutches along with ice and elevation. If your symptoms or not getting better over the course of the next week then please follow-up with your primary care provider. I am prescribing a short course of narcotic pain medication for you. These are potentially dangerous and addictive medications that should be used carefully. These medications may constipate you. Take an [id number] stool softener (docusate) twice daily with plenty of water while taking these medications. If you go 24 hours without a bowel movement, take [id number] miralax, per package instructions. Do not drink or drive while taking these medications. If you received narcotic or sedating medications while in the emergency department, do not drive for 24 hours. Store this medication in a safe, secure place and out of reach of children. It is a violation of federal law to give or sell this medication to another person or to use in a manner other than prescribed. The ED will not refill narcotic prescriptions, including prescriptions lost or stolen. To dispose of unwanted medications: 1. [facility] [address] in [place] has a medication drop box. They accept prescription medications (in pill form) Saturday through Saturday 9:00 a.m. to 5:00 p.m. 2. The [facility] accepts prescription medications (in pill form only) for disposal year round. Call for more information. 3. Contact the [facility] for the next [facility] sponsored prescription drug collection event. , [phone], or [phone]; Note that many narcotic pain relievers also contain Tylenol/acetaminophen. Plea se ensure that your total dose of acetaminophen from all sources does not exceed 3 g (3000 mg) per day. Forms: PCP List Discharge Date/Time: 09/04/23 13:01
[2023-09-04] MEDS ORDERED: oxyCODONE 5 MG TABLET PO STA (12:35)
== END 2023-09-04 13:01 | disposition home or self-care (01) ==
LOC: EDUNIT# → ED 11:21
DX: M25.562 Pain in left knee (principal); I10 Essential (primary) hypertension
CPT/HCPCS: 73562; 99283; A9270